=== PATIENT | male | born 1995 ===

== ENCOUNTER 2023-08-12 00:38 | Emergency (ER) | payer OTHER ==
[~2023-08-12] VITALS: Ht 160 cm; Wt 145.2 kg
[2023-08-12 00:52] VITALS: BP 161/97
[2023-08-12] MEDS ORDERED: HYDACE10B PO (00:54)
[2023-08-12] MEDS ORDERED: LIDO700A20 TOP (02:31)
== END 2023-08-12 02:40 | disposition home or self-care (01) ==
LOC: ER 00:38
DX: M54.50 Low back pain, unspecified (principal); M54.6 Pain in thoracic spine; V43.52XA Car driver injured in collision with other type car in traffic accident, initial encounter
CPT/HCPCS: 99283; A9270